=== PATIENT | female | born 1955 | race Caucasian/White ===

== ENCOUNTER 2017-07-03 06:20 | Day surgery (SDC) | payer OTHER ==
[~2017-07-03] VITALS: Ht 170.2 cm; Wt 81.2 kg
[~2017-07-03 06:20] MED LIST: Adipex-P37.5 MG; LEVSOD100; Omeprazole20 M1; TRAZ100
== END 2017-07-03 08:25 | disposition home or self-care (01) ==
LOC: ORSCSDS 06:20
PROVIDERS: Ophthalmology
PROC: 08RJ3JZ Replacement of Right Lens with Synthetic Substitute, Percutaneous Approach (ICD-10-PCS; principal; 2017-07-03 07:30)
DX: H25.11 Age-related nuclear cataract, right eye (principal); E03.9 Hypothyroidism, unspecified; Z79.899 Other long term (current) drug therapy
CPT/HCPCS: J2250; J3010; J3301; V2632

== ENCOUNTER 2017-07-08 08:25 | Emergency (ER) | payer OTHER ==
[~2017-07-08] VITALS: Ht 180.3 cm; Wt 80.7 kg
== END 2017-07-08 10:15 | disposition home or self-care (01) ==
LOC: ER 08:25
DX: T14.8XXA Other injury of unspecified body region, initial encounter (principal); M25.562 Pain in left knee; Z79.899 Other long term (current) drug therapy; Z96.653 Presence of artificial knee joint, bilateral; W19.XXXA Unspecified fall, initial encounter; Y93.01 Activity, walking, marching and hiking
CPT/HCPCS: 73562-LT; 99283